=== PATIENT | female | born 1980 | race Caucasian/White ===

== ENCOUNTER 2020-08-05 19:24 | Emergency (ER) | payer OTHER ==
[2020-08-05] MEDS ORDERED: Acetaminophen/oxyCODONE 325-5 MG Tab PO ONE (19:25)
[2020-08-05] MEDS ORDERED: Promethazine 25 MG/ML SDV IM ONE (20:29)
[2020-08-05] MEDS ORDERED: HYDROmorphone 1 MG/ML Syringe IM ONE (20:29)
--- NOTE | 2020-08-05 20:29 | EDM.PDOC ---
ED HPI GENERAL MEDICAL PROBLEM - General Chief Complaint: Lower Extremity Injury/Pain Stated Complaint: PROBLEMS WITH PAIN/SURGERY TODAY Time Seen by Provider: 08/05/20 20:15 Source of Information: Reports: Patient History Limitations: Reports: No Limitations - History of Present Illness INITIAL COMMENTS - FREE TEXT/NARRATIVE: Patient comes emergency department today from home with complaints of severe pain to her left foot following surgery today. Today in [facility] she had a ligament repair of her great toe by podiatry. She was given hydrocodone for pain which she has taken 4 of them with absolutely no pain relief. Her pain is unrelenting. Her pain is 10 out of 10. She has not fallen or injured the area. She has no fever or chills. She did attempt to contact her surgeon but she was unable to get hold of them and they directed her to the emergency department. She has had hydrocodone in the past and does not feel that it works for her. 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 ED EXAM, GENERAL - Physical Exam Exam: See Below Exam Limited By: No Limitations General Appearance: Alert, WD/WN, Mild Distress (she does appear to be uncomfortable. ) Respiratory/Chest: No Respiratory Distress, Lungs Clear Cardiovascular: Normal Peripheral Pulses, Regular Rate, Rhythm Peripheral Pulses: 2+: Posterior Tibial (L), Posterior Tibial (R), Dorsalis Pedis (L), Dorsalis Pedis (R) Extremities: No: Normal Inspection (She has a dry intact dressing to the left foot. She is able to flex and extend her toes. Her CMS is intact appropriately to her left foot.) Neurological: Alert, Oriented Psychiatric: Anxious Skin Exam: Warm, Dry, Intact, Normal Color, No Rash Course - Vital Signs Last Recorded V/S: Last Vital Signs Temp 98.8 F 08/05/20 20:13 Pulse 72 08/05/20 20:13 Resp 16 08/05/20 20:13 BP 117/61 08/05/20 20:13 Pulse Ox 100 08/05/20 20:13 - Orders/Labs/Meds Meds: Medications Discontinued Medications Generic Name Dose Route Start Last Admin Trade Name Hong PRN Reason Stop Dose Admin Hydromorphone HCl 1 mg 08/05/20 20:29 08/05/20 20:36 Hydromorphone 1 Mg/Ml Syringe IM 08/05/20 20:30 1 mg ONETIME ONE Administration Oxycodone/Acetaminophen Confirm 08/05/20 20:47 Acetaminophen/Oxycodone 325-5 Mg Tab Administered 08/05/20 20:48 Dose 2 tab .ROUTE .STK-MED ONE Promethazine HCl 12.5 mg 08/05/20 20:29 08/05/20 20:35 Promethazine 25 Mg/Ml Sdv IM 08/05/20 20:30 12.5 mg ONETIME ONE Administration - Re-Assessments/Exams Free Text/Narrative Re-Assessment/Exam: 08/05/20 20:28 The patient does have a bottle of hydrocodone 53 25 with 36 tablets and then. I did review her [place] PDMP and she has no prescriptions have been filled lately and most likely it has not been posted yet by the pharmacy yet fill that today. But she has no other narcotic or controlled substances available in [place]. I discussed with the patient that as she is unable to get a hold of her surgeon and is Saturday night she is quite uncomfortable that since she brought her bottle and I am comfortable with destroying those medications and I will replace them with Percocets. The patient consented to the destruction of the 36 tablets of hydrocodone 5/325 which were destroyed in the cactus contained by myself and Essence BRAXTON witnessing the waste. I will give her a prescription for 30 tablets of Percocet 53 25 no refills. S he is also given Phenergan and Dilaudid IM at this time. She is comfortable with this plan and her questions were answered. She is to contact her surgeon on Saturday to let them know about the change. 08/06/20 00:30 Departure - Departure Time of Disposition: 20:32 Disposition: Home, Self-Care 01 Clinical Impression: Post-operative pain - Discharge Information Instructions: Pain Medicine Instructions, [id number] Referrals: Lakhwinder Bush NP [Primary Care Provider] - Forms: ED Department Discharge Additional Instructions: Continue previous therapies at home from surgeon. Make sure and keep elevated and also Ice as well. You can also take ibuprofen for pain as well on top of the Percocet. We destroyed your hydrocodone here in the ED. And will replace with Percocet 1 tablet every 6 hrs with food as needed for pain. Caution sedation. #30. Also make sure you are taking something OTC to prevent constipation. I would recommend atleast starting with increasing fluids as well as a daily dose at minimum of 1 capful of miralax in a large glass of water. Contact your surgeon tomorrow and let them know the change in plans. Return to the ED if new or worsening symptoms. Sepsis Event Note (ED) - Evaluation Sepsis Screening Result: No Definite Risk - Focused Exam Vital Signs: Vital Signs Temp Pulse Resp BP Pulse Ox 08/05/20 20:13 98.8 F 72 16 117/61 100
[2020-08-05] MEDS ORDERED: Acetaminophen/oxyCODONE 325-5 MG Tab ONE (20:47)
== END 2020-08-05 20:55 | disposition home or self-care (01) ==
LOC: DL.ED 19:24
DX: G89.18 Other acute postprocedural pain (principal); M79.672 Pain in left foot
CPT/HCPCS: 96372; 99283; A9270-GY; J1170; J2550

== ENCOUNTER 2023-01-29 18:12 | Emergency (ER) | payer OTHER ==
[2023-01-29 18:39] LABS: APPEARANCE,URINE CLEAR (CLEAR); BILIRUBIN,URINE NEGATIVE (NEGATIVE); COLOR,URINE STRAW (YELLOW); GLUCOSE,URINE NEGATIVE (NEGATIVE); KETONES,URINE NEGATIVE (NEGATIVE); LEUKOCYTE ESTERASE,URINE SMALL (NEGATIVE); NITRITE,URINE NEGATIVE (NEGATIVE); OCCULT BLOOD,URINE LARGE (NEGATIVE); PROTEIN,URINE NEGATIVE (NEGATIVE); UROBILINOGEN,URINE 0.2 mg/dL (0.2-1.0)
[2023-01-29 18:48] LABS: BACTERIA,URINE FEW /HPF (0-FEW/HPF); EPITHELIAL CELLS,URINE FEW /HPF (NOT SEEN)
[2023-01-29 18:49] LABS: WBC,URINE 0-5 /HPF (0-5/HPF)
[2023-01-29] MEDS ORDERED: Sodium Chloride 0.9% 10 ML Syringe FLUSH PRN (18:53)
[2023-01-29 19:15] LABS: BASOPHILS PERCENT AUTO 0.1 % (0.0-1.0); EOSINOPHILS PERCENT AUTO 0.5 % (1.0-3.0); HEMATOCRIT 40.7 % (37.0-47.0); LYMPHOCYTES PERCENT AUTO 9.5 % (20.5-50.1); MEAN CORPUSCULAR HEMOGLOBIN 32.4 pg (27.0-34.0); MEAN CORPUSCULAR HGB CONC 34.4 g/dL (33.0-35.0); MEAN CORPUSCULAR VOLUME 94.2 fL (80-100); MONOCYTES PERCENT AUTO 6.5 % (2-8); NEUTROPHILS PERCENT AUTO 83.4 % (42.2-75.2); PLATELET COUNT,PLT 219 10^3/uL (150-450); RED BLOOD CELL COUNT 4.32 10^6/uL (4.2-5.4)
[2023-01-29 19:36] LABS: A/G RATIO 1.1; ALBUMIN 3.7 g/dL (3.4-5.0); ANION GAP 9.5 mEq/L (7-13); BILIRUBIN TOTAL 0.9 mg/dL (0.2-1.0); CREATININE 0.9 mg/dL (0.55-1.02); EST CRCL DRUG DOSING (CG) 72.53 mL/min; POTASSIUM,K 3.5 mmol/L (3.5-5.1); PROTEIN TOTAL,TP 7.1 g/dL (6.4-8.2)
[2023-01-29] MEDS ORDERED: Sulfamethoxazole/Trimethoprim 800-160 MG Tab PO ONE (20:05)
[2023-01-29] MEDS ORDERED: Take Home: Phenazopyridine 95 MG Tab, 4 Tab Pack PO ONE (20:11)
[2023-01-29] MEDS ORDERED: Phenazopyridine 95 MG Tab PO ONE (20:11)
== END 2023-01-29 20:28 | disposition home or self-care (01) ==
LOC: DL.ED 18:12
DX: N39.0 Urinary tract infection, site not specified (principal)
CPT/HCPCS: 36415; 80053; 81001; 85025; 87086; 99283; A9270-GY; J3490